=== PATIENT | female | born 1965 | race Caucasian/White ===

== ENCOUNTER 2018-04-29 17:32 | Inpatient (IN) | payer OTHER ==
[2018-04-29] MEDS ORDERED: morphine 2 MG INJ IV (21:30)
[2018-04-29] MEDS ORDERED: ONDANSETRON 4 MG INJ IV (21:30)
[2018-04-29] MEDS ORDERED: ACETAMINOPHEN 650 MG SUPP PR (21:30)
[2018-04-29] MEDS: DEXTROSE 5%-0.9% NACL 1,000 ML IV (22:14)
[2018-04-30] MEDS: INSULIN ASPART [NOVOLOG] 3 ML PEN SC ×6 (01:00→20:51)
[2018-04-30] MEDS ORDERED: ACCU-CHEK XX (02:00)
[2018-04-30 06:00] LABS: ADD MAN DIFF? NO
[2018-04-30 06:06] LABS: WHITE BLOOD COUNT 4.9 10^3/ul (4.8-10.8)
[2018-04-30 06:06] LABS: BASOPHILS % 0.2 % (0.0-2.0); EOSINOPHILS % 0.4 % (0.0-7.0); HEMOGLOBIN 10.2 g/dl (12.0-16.0); LYMPHOCYTES # 0.9 10^3/ul (0.8-2.9); LYMPHOCYTES % 18.6 % (15.0-51.0); MEAN CORPUSCULAR HEMOGLOBIN 28.6 pg (29.0-33.0); MEAN CORPUSCULAR HGB CONC 30.9 g/dl (32.0-37.0); MEAN CORPUSCULAR VOLUME 92.4 fl (82.0-101.0); MEAN PLATELET VOLUME 10.9 fl (7.4-10.4); MONOCYTE # 0.3 10^3/ul (0.3-0.9); MONOCYTES % 6.7 % (0.0-11.0); NEUTROPHIL # 3.6 10^3/ul (1.6-7.5); NEUTROPHILS % 73.7 % (39.0-77.0); PLATELET COUNT 174 10^3/UL (140-415); RED BLOOD COUNT 3.57 10^6/ul (4.20-5.40); RED CELL DISTRIBUTION WIDTH 15.6 % (11.5-14.5)
[2018-04-30] MEDS: PANTOPRAZOLE 40 MG INJ IV (06:21)
[2018-04-30 07:04] LABS: ALANINE AMINOTRANSFERASE 12 IU/L (13-69); ALBUMIN/GLOBULIN RATIO 1.11; ALKALINE PHOSPHATASE 58 IU/L (42-121); ANION GAP 9 (8-16); ASPARTATE AMINO TRANSFERASE 25 IU/L (15-46); BILIRUBIN,INDIRECT 0.3 mg/dl (0-1.1); BILIRUBIN,TOTAL 0.3 mg/dl (0.2-1.3); BLOOD UREA NITROGEN 10 mg/dl (7-20); CALCIUM 8.8 mg/dl (8.4-10.2); CARBON DIOXIDE 30 mmol/L (21-31); CHLORIDE 107 mmol/L (97-110); CREATININE 0.26 mg/dl (0.44-1.00); GLUCOSE 98 mg/dl (70-220); POTASSIUM 3.6 mmol/L (3.5-5.1); SODIUM 142 mmol/L (135-144); TOTAL PROTEIN 5.7 g/dl (6.1-8.1)
[2018-04-30] MEDS: DEXTROSE 5%-0.9% NACL 1,000 ML IV (13:14)
[2018-04-30] MEDS: LORAZEPAM 2 MG INJ IV (17:41)
[2018-04-30] MEDS: hydrALAzine 20 MG INJ IV (20:51)
[2018-05-01] MEDS: LORAZEPAM 2 MG INJ IV ×2 (00:07→15:45)
[2018-05-01] MEDS: INSULIN ASPART [NOVOLOG] 3 ML PEN SC ×3 (01:00→09:00)
[2018-05-01] MEDS: DEXTROSE 5%-0.9% NACL 1,000 ML IV (06:31)
[2018-05-01] MEDS: PANTOPRAZOLE 40 MG INJ IV (06:31)
[2018-05-01 07:33] LABS: ADD MAN DIFF? NO
[2018-05-01 07:42] LABS: WHITE BLOOD COUNT 5.1 10^3/ul (4.8-10.8)
[2018-05-01 07:42] LABS: EOSINOPHILS % 0.2 % (0.0-7.0); HEMATOCRIT 35.8 % (37.0-47.0); LYMPHOCYTES # 0.6 10^3/ul (0.8-2.9); LYMPHOCYTES % 12.1 % (15.0-51.0); MEAN CORPUSCULAR HEMOGLOBIN 27.9 pg (29.0-33.0); MEAN CORPUSCULAR HGB CONC 30.7 g/dl (32.0-37.0); MEAN CORPUSCULAR VOLUME 90.9 fl (82.0-101.0); MEAN PLATELET VOLUME 11.5 fl (7.4-10.4); MONOCYTE # 0.3 10^3/ul (0.3-0.9); MONOCYTES % 5.8 % (0.0-11.0); NEUTROPHIL # 4.2 10^3/ul (1.6-7.5); NEUTROPHILS % 81.5 % (39.0-77.0); PLATELET COUNT 169 10^3/UL (140-415); RED BLOOD COUNT 3.94 10^6/ul (4.20-5.40); RED CELL DISTRIBUTION WIDTH 15.7 % (11.5-14.5)
[2018-05-01 07:57] LABS: PARTIAL THROMBOPLASTIN TIME 29.3 Sec (25.0-35.0)
[2018-05-01 08:03] LABS: ANION GAP 12 (8-16); BLOOD UREA NITROGEN 7 mg/dl (7-20); CALCIUM 8.8 mg/dl (8.4-10.2); CARBON DIOXIDE 27 mmol/L (21-31); CHLORIDE 109 mmol/L (97-110); CREATININE 0.25 mg/dl (0.44-1.00); GLUCOSE 104 mg/dl (70-220); POTASSIUM 3.1 mmol/L (3.5-5.1); SODIUM 145 mmol/L (135-144)
[2018-05-01 08:14] LABS: HEMOGLOBIN A1C 4.1 % (0-5.9)
[2018-05-01] MEDS: BISACODYL 10 MG SUPP PR (10:15)
[2018-05-01] MEDS ORDERED: DEXTROSE 50% 50 ML SYRINGE IV ×2 (12:30)
[2018-05-01] MEDS ORDERED: GLUCOSE GEL 15 GRAM TUBE BUCCAL (12:30)
[2018-05-01] MEDS ORDERED: GLUCAGON 1 MG INJ IM (12:30)
[2018-05-01] MEDS ORDERED: GLUCOSE GEL 15 GRAM TUBE PO ×2 (12:30)
[2018-05-01] MEDS: ERGOCALCIFEROL 50,000 UNIT CAP PO (13:13)
[2018-05-01] MEDS: POTASSIUM CHLORIDE 20 MEQ POWDER FOR ORAL SOLN PO (13:13)
== END 2018-05-01 18:00 | disposition hospice, home (50) | DRG 394 ==
LOC: 2NE 17:32
PROVIDERS: Internal Medicine Nephrology
PROC: 0D20XUZ Change Feeding Device in Upper Intestinal Tract, External Approach (ICD-10-PCS; principal; 2018-04-29)
DX: K94.23 Gastrostomy malfunction (principal); G12.21 Amyotrophic lateral sclerosis; E46 Unspecified protein-calorie malnutrition; Z99.11 Dependence on respirator [ventilator] status; R13.10 Dysphagia, unspecified; Z66 Do not resuscitate; I10 Essential (primary) hypertension; F41.9 Anxiety disorder, unspecified; K59.00 Constipation, unspecified; D53.9 Nutritional anemia, unspecified; Y84.8 Other medical procedures as the cause of abnormal reaction of the patient, or of later complication, without mention of misadventure at the time of the procedure; Y92.019 Unspecified place in single-family (private) house as the place of occurrence of the external cause; Z74.01 Bed confinement status
CPT/HCPCS: 80048; 80053; 82652; 82962; 83036; 85025; 85730